=== PATIENT | female | born 1970 | race Two or more races ===

== ENCOUNTER 2023-06-14 14:31 | Emergency (ER) | payer BC, OTHER ==
[~2023-06-14] VITALS: Ht 160 cm; Wt 63.5 kg
[2023-06-14] MEDS ORDERED: TYL2T PO (17:16)
[2023-06-14 18:39] VITALS: BP 121/71; TEMP 98.1; O2SAT 98
== END 2023-06-14 18:39 | disposition home or self-care (01) ==
LOC: ER 14:37
DX: S06.0XAA Concussion with loss of consciousness status unknown, initial encounter (principal); Z60.2 Problems related to living alone; W22.8XXA Striking against or struck by other objects, initial encounter; Y93.89 Activity, other specified; Y92.89 Other specified places as the place of occurrence of the external cause; Y99.8 Other external cause status
CPT/HCPCS: 70450-TC